=== PATIENT | female | born 1995 | race Caucasian/White ===

== ENCOUNTER 2018-07-19 16:44 | Emergency (ER) | payer SELFPAY ==
[~2018-07-19] VITALS: Ht 175.3 cm; Wt 66.2 kg
[2018-07-19 16:49] VITALS: BP 121/66
--- NOTE | 2018-07-19 16:53 | NUR ---
PATIENT AMBULATED TO BED AT THIS TIME.
--- NOTE | 2018-07-19 17:02 | NUR ---
30/F BIB SISTER C/O NAUSEA AND DIARRHEA WITH ABDOMINA PAIN X 2 DAYS. PATIENT STATES PAIN OF 7/10 AT THIS TIME; VSS; PATIENT POSITIONED FOR COMFORT; HOB ELEVATED; BEDRAILS UP X2; BED DOWN. ER MD MADE AWARE OF PT STATUS.
[2018-07-19] MEDS ORDERED: ONDANSETRON 4 MG/2 ML VIAL IVP ONE (17:20)
[2018-07-19] MEDS ORDERED: NACL 0.9% 1,000 ML IV ONE (17:20)
[2018-07-19 18:32] VITALS: BP 112/63
--- NOTE | 2018-07-19 18:32 | NUR ---
Patient discharged with v/s stable. Written and verbal after care instructions given and explained. Patient alert, oriented and verbalized understanding of instructions. Ambulatory with steady gait. All questions addressed prior to discharge. ID band removed. Patient advised to follow up with PMD. Rx of ZOFRAN, IMODIUM & MOTRIN given. Patient educated on indication of medication including possible reaction and side effects. Opportunity to ask questions provided and answered.
== END 2018-07-19 18:32 | disposition home or self-care (01) ==
LOC: MED 16:44
DX: R10.30 Lower abdominal pain, unspecified (principal); R19.7 Diarrhea, unspecified; R11.0 Nausea
CPT/HCPCS: 81002; 81025; 96361; 96374; 99283; J2405; J7030